=== PATIENT | male | born 1935 | race Caucasian/White ===

== ENCOUNTER → 2017-10-21 | Outpatient (CLI) | payer MEDICARE, OTHER ==
--- NOTE | 2017-10-21 22:56 | CT ---
EXAMINATION TYPE: CT brain wo con DATE OF EXAM: 10/21/2017 HISTORY: Memory loss per order. Change in memory and dizziness per patient screening she. CT DLP: 1091.3 mGycm. Automated Exposure Control for Dose Reduction was Utilized. TECHNIQUE: CT scan of the head is performed without contrast. COMPARISON: None. FINDINGS: There is no acute intracranial hemorrhage or midline shift identified. There is diffuse v entricular and sulcal prominence consistent with diffuse age-related cerebral atrophy. There is low- attenuation in the periventricular white matter consistent with chronic small vessel ischemic change. Unusual appearance to the left globe which is hyperdense and has calcified lens. Correlate clinicall y with history of prior surgery or trauma. Prominent soft tissue density bilateral external auditory canals likely reflects cerumen. Visualized paranasal sinuses are clear. There is vascular calcificati on distal internal carotid arteries bilaterally. Vascular calcification of the left vertebral artery is also noted at level of foramen magnum. No suspicious fluid signal bilateral mastoid air cells is s een. IMPRESSION: No acute intracranial hemorrhage or midline shift. There is mild to moderate diffuse ag e-related cerebral atrophy and moderate to severe chronic small vessel ischemic change noted. Attent ion to left globe.
== END | disposition home or self-care (01) ==
LOC: RADCTMAIN 19:02
PROVIDERS: ATTEND Psychiatry & Neurology Sleep Medicine
DX: G31.9 Degenerative disease of nervous system, unspecified (principal); I67.82 Cerebral ischemia
CPT/HCPCS: 70450

== ENCOUNTER 2019-03-09 10:32 | Emergency (ER) | payer MEDICARE, OTHER ==
[2019-03-09 10:59] VITALS: TEMP 97.7
--- NOTE | 2019-03-09 11:52 | ED ---
Recheck HPI - General Chief Complaint: Recheck/Abnormal Lab/Rx Stated Complaint: abn labs Time Seen by Provider: 03/09/19 11:28 Source: patient, family Mode of arrival: wheelchair Limitations: no limitations - History of Present Illness Initial Comments: Patient is an 83-year-old male presenting to the emergency department with his grandson with complaints of possible low blood pressure. The grandson states the took his blood pressure at home and it was 100/70 and then rechecked and was 140/72. The grandson told his mother his BP who told then told the office of OA as they were headed there for an appointment for chronic knee pain. OA said to go to the ER for low BP. Patient does have mild dementia. The grandson states with the patient. The patient is not complaining of pain, dizziness, recent fevers. He has no complaints whatsoever other than his left foot pain. The grandson states he has been acting his normal self other than the left knee/foot pain which they had an appointment today for. No recent changes in medications. There are no other complaints at this time. Upon arrival to the ER, patient's BP is 108/72, rest of vitals are also normal. - Related Data Home Medications Medication Instructions Recorded Confirmed Doxazosin Mesylate 2 mg PO DAILY 11/22/13 06/28/15 Brimonidine Tartrate/Timolol 1 drop LEFT EYE DAILY 06/28/15 06/28/15 [Combigan 0.2%/0.5% Ophth Soln] Bromfenac Sodium [Bromday] 1 drop OPHTHALMIC 06/28/15 06/28/15 Difluprednate [Durezol] 5 ml LEFT EYE QID 06/28/15 06/28/15 Folic Acid 5 mg PO DAILY 06/28/15 06/28/15 Lisinopril [Prinivil] 10 mg PO DAILY 06/28/15 06/28/15 Ofloxacin 0.3% Ophth Soln [Ocuflox 1 drops LEFT EYE QID 06/28/15 06/28/15 Ophth Soln] Omeprazole [PriLOSEC] 2.5 mg PO AC-BRKFST 06/28/15 06/28/15 Simvastatin [Zocor] 20 mg PO HS 06/28/15 06/28/15 Triamterene-Hctz 37.5-25Mg 1 tab PO DAILY 06/28/15 06/28/15 [Maxzide 37.5-25] Previous Rx's Medication Instructions Recorded Famotidine [Pepcid] 20 mg PO DAILY #30 tab 06/03/14 Metoprolol Succinate (ER) [Toprol 50 mg PO DAILY tab.er.24h 06/03/14 XL] Nitroglycerin Sl Tabs [Nitrostat] 0.4 mg SUBLINGUAL Q5M PRN #25 tab 06/03/14 Ondansetron Odt [Zofran ODT] 4 mg PO Q8HR PRN #10 tab 06/28/15 Allergies Allergy/AdvReac Type Severity Reaction Status Date / Time No Known Allergies Allergy Verified 03/09/19 10:50 Review of Systems ROS Statement: Those systems with pertinent positive or pertinent negative responses have been documented in the HPI. ROS Other: All systems not noted in ROS Statement are negative. Past Medical History Past Medical History: Coronary Artery Disease (CAD), Chest Pain / Angina, Dementia, Hyperlipidemia, Hypertension, Renal Disease Additional Past Medical History / Comment(s): . Hx renal disease yrs ago. 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 Eye surgery. Past Anesthesia/Blood Transfusion Reactions: Postoperative Nausea & Vomiting (PONV) Additional Past Anesthesia/Blood Transfusion Reaction / Comment(s): Pt had blood products during CABG 1993 Past Psychological History: No Psychological Hx Reported Smoking Status: Former smoker Past Alcohol Use History: Rare Past Drug Use History: None Reported - Past Family History Father Family Medical History: Cancer Additional Family Medical History / Comment(s): of colon ca. Mother Family Medical History: Cancer Additional Family Medical History / Comment(s): unsure where ca was. General Exam - General Exam Comments Initial Comments: GENERAL: Well-appearing, well-nourished and in no acute distress. HEAD: Atraumatic, normocephalic. EYES: Pupils equal round and reactive to light, extraocular movements intact, sclera a nicteric, conjunctiva are normal. ENT: TMs normal, nares patent, oropharynx clear without exudates. Moist mucous membranes. NECK: Normal range of motion, supple without lymphadenopathy or JVD. LUNGS: Breath sounds clear to auscultation bilaterally and equal. No wheezes rales or rhonchi. HEART: Regular rate and rhythm without murmurs, rubs or gallops. ABDOMEN: Soft, nontender, normoactive bowel sounds. No guarding, no rebound. No masses appreciated. : Deferred EXTREMITIES: Mild pain with palpation along the lateral aspect of the left foot. Patient has full and normal range of motion. Neurovascular intact. No pain with palpation of left knee, full range of motion. NEUROLOGICAL: Normal speech, normal gait. PSYCH: Normal mood, normal affect. SKIN: Warm, Dry, normal turgor, no rashes or lesions noted. Limitations: no limitations Course Vital Signs 03/09/19 03/09/19 03/09/19 10:51 10:59 11:59 Temperature 97.7 F Pulse Rate 84 103 H Pulse Rate [ Sitting Pulse Oximetery] Pulse Rate [ Standing Pulse Oximetery] Pulse Rate [ Supine Pulse Oximetery] Respiratory 18 16 16 Rate Blood Pressure 108/73 110/76 Blood Pressure [Left Arm Sitting] Blood Pressure [Left Arm Standing] Blood Pressure [Left Arm Supine] O2 Sat by Pulse 95 Oximetry 03/09/19 03/09/19 03/09/19 12:00 13:00 14:53 Temperature Pulse Rate 74 72 Pulse Rate [ 88 Sitting Pulse Oximetery] Pulse Rate [ 103 H Standing Pulse Oximetery] Pulse Rate [ 74 Supine Pulse Oximetery] Respiratory 16 16 20 Rate Blood Pressure 120/74 118/70 Blood Pressure 110/76 [Left Arm Sitting] Blood Pressure 130/60 [Left Arm Standing] Blood Pressure 141/71 [Left Arm Supine] O2 Sat by Pulse Oximetry Medical Decision Making - Medical Decision Making Patient is an 83-year-old male presenting with possible low blood pressure. Blood pressure was normal upon arrival. Orthostatics were positive. Labs were then obtained. Labs show no acute findings, UA is normal. Patient requesting x-ray of left knee and foot as they were supposed to have it done today. 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 I discussed these findings with the patient and family. Patient will follow back up with orthopedics regarding his foot pain. Patient continues to have no other complaints to the ER. His vital signs remained stable. Patient will follow up with his PCP regarding the blood pressure. Pat ient was given half a liter of fluids. Patient is stable for discharge at this time. Return parameters were discussed with the patient and his family and they verbalized understanding. Case discussed with Dr. Balderrama. - Lab Data Result diagrams: 03/09/19 13:19 03/09/19 13:19 Lab Results 03/09/19 03/09/19 03/09/19 Range/Units 13:19 13:19 13:19 WBC 12.0 H (3.8-10.6) k/uL RBC 3.81 L (4.30-5.90) m/uL Hgb 12.1 L (13.0-17.5) gm/dL Hct 36.5 L (39.0-53.0) % MCV 95.8 (80.0-100.0) fL MCH 31.7 (25.0-35.0) pg MCHC 33.1 (31.0-37.0) g/dL RDW 13.4 (11.5-15.5) % Plt Count 179 (150-450) k/uL Neutrophils % 89 % Lymphocytes % 5 % Monocytes % 4 % Eosinophils % 1 % Basophils % 0 % Neutrophils # 10.7 H (1.3-7.7) k/uL Lymphocytes # 0.6 L (1.0-4.8) k/uL Monocytes # 0.5 (0-1.0) k/uL Eosinophils # 0.2 (0-0.7) k/uL Basophils # 0.0 (0-0.2) k/uL PT 9.5 (9.0-12.0) sec INR 0.9 (<1.2) APTT 18.6 L (22.0-30.0) sec Sodium 138 (137-145) mmol/L Potassium 4.7 (3.5-5.1) mmol/L Chloride 105 (98-107) mmol/L Carbon Dioxide 26 (22-30) mmol/L Anion Gap 7 mmol/L BUN 29 H (9-20) mg/dL Creatinine 1.45 H (0.66-1.25) mg/dL Est GFR (CKD-EPI)AfAm 51 (>60 ml/min/1.73 sqM) Est GFR (CKD-EPI)NonAf 44 (>60 ml/min/1.73 sqM) Glucose 177 H (74-99) mg/dL Calcium 9.0 (8.4-10.2) mg/dL Total Bilirubin 0.7 (0.2-1.3) mg/dL AST 30 (17-59) U/L ALT 17 (4-49) U/L Alkaline Phosphatase 66 (38-126) U/L Total Protein 6.3 (6.3-8.2) g/dL Albumin 3.5 (3.5-5.0) g/dL Urine Color Urine Appearance (Clear) Urine pH (5.0-8.0) Ur Specific [place] (1.001-1.035) Urine Protein (Negative) Urine Glucose (UA) (Negative) Urine Ketones (Negative) Urine Blood (Negative) Urine Nitrite (Negative) Urine Bilirubin (Negative) Urine Urobilinogen (<2.0) mg/dL Ur Leukocyte Esterase (Negative) Urine RBC (0-5) /hpf Urine WBC (0-5) /hpf Ur Squamous Epith Cells (0-4) /hpf Urine Mucus (None) /hpf 03/09/19 Range/Units 14:29 WBC (3.8-10.6) k/uL RBC (4.30-5.90) m/uL Hgb (13.0-17.5) gm/dL Hct (39.0-53.0) % MCV (80.0-100.0) fL MCH (25.0-35.0) pg MCHC (31.0-37.0) g/dL RDW (11.5-15.5) % Plt Count (150-450) k/uL Neutrophils % % Lymphocytes % % Monocytes % % Eosinophils % % Basophils % % Neutrophils # (1.3-7.7) k/uL Lymphocytes # (1.0-4.8) k/uL Monocytes # (0-1.0) k/uL Eosinophils # (0-0.7) k/uL Basophils # (0-0.2) k/uL PT (9.0-12.0) sec INR (<1.2) APTT (22.0-30.0) sec Sodium (137-145) mmol/L Potassium (3.5-5.1) mmol/L Chloride (98-107) mmol/L Carbon Dioxide (22-30) mmol/L Anion Gap mmol/L BUN (9-20) mg/dL Creatinine (0.66-1.25) mg/dL Est GFR (CKD-EPI)AfAm (>60 ml/min/1.73 sqM) Est GFR (CKD-EPI)NonAf (>60 ml/min/1.73 sqM) Glucose (74-99) mg/dL Calcium (8.4-10.2) mg/dL Total Bilirubin (0.2-1.3) mg/dL AST (17-59) U/L ALT (4-49) U/L Alkaline Phosphatase (38-126) U/L Total Protein (6.3-8.2) g/dL Albumin (3.5-5.0) g/dL Urine Color Yellow Urine Appearance Clear (Clear) Urine pH 5.0 (5.0-8.0) Ur Specific [place] 1.030 (1.001-1.035) Urine Protein 1+ H (Negative) Urine Glucose (UA) Negative (Negative) Urine Ketones Negative (Negative) Urine Blood Negative (Negative) Urine Nitrite Negative (Negative) Urine Bilirubin Negative (Negative) Urine Urobilinogen 2.0 (<2.0) mg/dL Ur Leukocyte Esterase Negative (Negative) Urine RBC <1 (0-5) /hpf Urine WBC 1 (0-5) /hpf Ur Squamous Epith Cells <1 (0-4) /hpf Urine Mucus Few H (None) /hpf Disposition Clinical Impression: Fracture of fifth metatarsal bone of left foot Disposition: HOME SELF-CARE Condition: Stable Instructions (If sedation given, give patient instructions): Foot Fracture in Adults (ED) Additional Instructions: Please return to the Emergency Department if symptoms worsen or any other conc erns. Follow-up with orthopedics and PCP. Is patient prescribed a controlled substance at d/c from ED?: No Referrals: Chris Fan MD [Primary Care Provider] - 1-2 days Vipin Rendon MD [STAFF PHYSICIAN] - 1-2 days
[2019-03-09] MEDS ORDERED: SODIUM CHLORIDE 0.9% 500 ML 500 ML IV STA (12:47)
[2019-03-09 13:48] LABS: Basophils % (A) 0 %; Eosinophils # (A) 0.2 k/uL (0-0.7); Eosinophils % (A) 1 %; HCT 36.5 % (39.0-53.0); HGB 12.1 gm/dL (13.0-17.5); Lymphocytes # (A) 0.6 k/uL (1.0-4.8); Lymphocytes % (A) 5 %; MCH 31.7 pg (25.0-35.0); MCHC 33.1 g/dL (31.0-37.0); MCV 95.8 fL (80.0-100.0); Monocytes # (A) 0.5 k/uL (0-1.0); Monocytes % (A) 4 %; Neutrophils # (A) 10.7 k/uL (1.3-7.7); Neutrophils % (A) 89 %; Platelet Count 179 k/uL (150-450); RBC 3.81 m/uL (4.30-5.90); RDW 13.4 % (11.5-15.5)
[2019-03-09 13:55] VITALS: BP 118/70; PULSE 72
[2019-03-09 13:55] LABS: Albumin 3.5 g/dL (3.5-5.0); Total Bilirubin 0.7 mg/dL (0.2-1.3); Total Protein 6.3 g/dL (6.3-8.2)
[2019-03-09 14:04] LABS: Potassium 4.7 mmol/L (3.5-5.1)
--- NOTE | 2019-03-09 14:22 | XR ---
EXAMINATION TYPE: XR knee complete LT DATE OF EXAM: 03/09/2019 CLINICAL HISTORY: Left knee pain TECHNIQUE: Three views of the left knee are obtained. COMPARISON: None. FINDINGS: There is no acute fracture/dislocation evident in left knee. The tri-compartment joint sp aces appear aligned. Very small tricompartmental osteophytes are seen. Old well-corticated fracture o f the tibial eminence is seen. Incidentally noted fabella. Surgical clips are seen medially of the th igh. The overlying soft tissue appears unremarkable. IMPRESSION: There is no acute fracture or dislocation in the left knee. Mild tricompartmental arthro dotty, old examinations fracture, postsurgical changes in the spine.
--- NOTE | 2019-03-09 14:22 | XR ---
EXAMINATION TYPE: XR foot complete LT DATE OF EXAM: 03/09/2019 COMPARISON: NONE HISTORY: Pain TECHNIQUE: Three views are submitted. FINDINGS: Chronic deformity of the left fifth metatarsal. Severe arthropathy of the first MTP with mild changes involving the remaining MTP joint. Healing fracture of the proximal phalanx fifth digit nonunion. Ca lcaneal spur noted. IMPRESSION: 1. 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 2. Remote fracture fifth metatarsal
[2019-03-09 14:27] LABS: INR 0.9 (<1.2); Prothrombin Time 9.5 sec (9.0-12.0)
[2019-03-09 14:31] LABS: Partial Thromboplastin Time 18.6 sec (22.0-30.0)
[2019-03-09 14:45] LABS: Appearance,Urine Clear (Clear); Bilirubin,Urine Negative (Negative); Blood,Urine Negative (Negative); Color,Urine Yellow; Glucose,Urine (UA) Negative (Negative); Ketones,Urine Negative (Negative); Leukocyte Esterase,Urine Negative (Negative); Mucus,Urine Few /hpf; Nitrite,Urine Negative (Negative); Protein,Urine 1+ (Negative); RBC,Urine <1 /hpf (0-5); Squamous Epithelial Cell,Urine <1 /hpf (0-4); WBC,Urine 1 /hpf (0-5)
[2019-03-09 14:55] VITALS: RESP 20
== END 2019-03-09 14:59 | disposition home or self-care (01) ==
LOC: SUPCPDRO 10:32 → EC 10:32
DX: S92.352A Displaced fracture of fifth metatarsal bone, left foot, initial encounter for closed fracture (principal); I25.119 Atherosclerotic heart disease of native coronary artery with unspecified angina pectoris; F03.90 Unspecified dementia, unspecified severity, without behavioral disturbance, psychotic disturbance, mood disturbance, and anxiety; G89.29 Other chronic pain; M25.569 Pain in unspecified knee; E78.5 Hyperlipidemia, unspecified; I10 Essential (primary) hypertension; Z87.891 Personal history of nicotine dependence; Z79.899 Other long term (current) drug therapy; Z95.1 Presence of aortocoronary bypass graft; Z95.5 Presence of coronary angioplasty implant and graft; X58.XXXA Exposure to other specified factors, initial encounter
CPT/HCPCS: 36415; 80053; 81001; 85025; 85610; 85730; 96360; 99285